=== PATIENT | male | born 1940 | race Caucasian/White ===

== ENCOUNTER 2016-08-16 08:39 | Outpatient (CLI) | payer MEDICARE, OTHER ==
--- NOTE | 2016-08-17 08:09 | MRI ---
MRI OF THE LUMBAR SPINE WITHOUT CONTRAST: Date: 08-16-16 Comparison: None. History: Evaluate compression fracture of the lumbar spine seen on prior radiographs. Technique: Multiplanar, multisequence MR imaging of the lumbar spine is obtained without contrast. FINDINGS: Assuming five lumbar type vertebral bodies, the conus medullaris terminates at the L1 level. There is no significant anterolisthesis or retrolisthesis seen. There is increased T2 signal involving the superior third of the L3 vertebral body, associated with a superior endplate fracture of the L3 vertebral body. The fracture line involves the anterior and posterior cortex, meeting criteria for a burst fracture. There is questionable minimal retropulsion of osseous fragments along the superior margin of the L3 vertebral body and at the level of the fra cture there is approximately 25% loss of vertebral body height centrally. No additional lumbar spin e fracture is noted. T12-L1: Intervertebral disc desiccation noted. There is mild disc space narrowing. There is no si gnificant central canal or neural foraminal stenosis. L1-2: There is mild bilateral facet hypertrophy. There is mild disc space narrowing. There is no significant central canal or neural foraminal stenosis. L2-3: Mild bilateral facet hypertrophy. Mild disc space narrowing and disc desiccation. No signif icant central canal or neural foraminal stenosis. L3-4: Mild bilateral facet hypertrophy. There is disc space narrowing, disc desiccation and mild d isc bulge as well as a left foraminal annular tear. There is no significant central canal or neural foraminal stenosis noted. L4-5: There is disc space narrowing, disc desiccation and mild disc bulge. There is bilateral face t hypertrophy with no significant central canal or neural foraminal stenosis. L5-S1: There is disc space narrowing and disc desiccation. There is bilateral facet hypertrophy wi th osteophyte encroachment on the bilateral neural foramina causing a mild left and moderate right n eural foraminal stenosis. No significant central canal stenosis. The imaged retroperitoneal structures demonstrate ectasia of the infrarenal abdominal aorta, not wel l characterized on this exam. There is a probable transitional vertebral body at the S1 level. The lowest full formed interverteb ral disc level is labelled at L5-S1 for the purposes of this dictation. IMPRESSION: 1. Burst fracture at L3 vertebral body with approximately 25% loss of vertebral body height. Quest ion minimal retropulsion of osseous fragments into the central canal with no associated central aubree l stenosis. 2. Multilevel degenerative change within the lumbar spine. 3. There is a probable transition S1 vertebral body. Please see the imaging on PACS for labelling of the vertebral body levels. POS: [facility]
== END 2016-08-16 08:40 | disposition home or self-care (01) ==
LOC: BURMRI 08:39
PROVIDERS: ATTEND Family Medicine
DX: S32.020A Wedge compression fracture of second lumbar vertebra, initial encounter for closed fracture (principal)
CPT/HCPCS: 72148

== ENCOUNTER 2017-03-03 10:57 | Outpatient (CLI) | payer MEDICARE, OTHER ==
[2017-03-03 12:32] LABS: #Basophils 0.1 thou/uL (0.0-0.2); #Eosinphils 0.2 thou/uL (0.0-0.7); #Lymphocytes 2.7 thou/uL (1.20-3.40); #Monocytes 0.7 thou/uL (0.11-0.59); #Neutrophils 6.6 thou/uL (1.40-6.50); %Lymphocytes 25.9 % (21.0-51.0); %Monocytes 7.2 % (0.0-10.0); %Neutrophils 63.9 % (42.0-75.0); Hemoglobin 14.4 g/dL (14.0-18.0); Mean Corpuscular HGB CONC 33.5 g/dL (32.0-36.0); Mean Corpuscular Hemoglobin 30.9 pg (27.0-31.0); Mean Corpuscular Volume 92.3 fl (80.0-94.0); Mean Platelet Volume 8.8 fL (7.4-10.4); Platelet Count 191 thou/uL (130-400); RBC Distribution Width 12.9 % (11.5-14.5); Red Blood Cell (RBC) Count 4.66 mill/uL (4.70-6.10); White Blood Cell (WBC) Count 10.3 thou/uL (4.8-10.8)
[2017-03-03 12:50] LABS: ALT (SGPT) 9 U/L (8-55); AST (SGOT) 18 U/L (5-34); Albumin 4.3 g/dL (3.4-4.8); Alkaline Phosphatase 104 U/L (40-150); Anion Gap 16 mmol/L (10-20); BUN (Urea Nitrogen) 11 mg/dL (8.4-25.7); Bilirubin, Total 0.7 mg/dL (0.2-1.2); Calc. Creatinine Clearance 0 mL/min (70-130); Calcium 9.8 mg/dL (7.8-10.44); Carbon Dioxide 27 mmol/L (23-31); Cardiac Risk 3.2 (Less than 4.5); Chloride 96 mmol/L (98-107); Cholesterol 139 mg/dl (< 200 Desired); Estimated GFR-MDRD 87; Globulin 3.5 g/dL (2.4-3.5); Glucose 90 mg/dL (83-110); HDL Cholesterol 43 mg/dL (>60 Neg Risk); LDL Cholesterol, Calculated 83 mg/dL; Potassium 4.9 mmol/L (3.5-5.1); Protein, Total 7.8 g/dL (5.8-8.1); Sodium 134 mmol/L (136-145); Triglycerides 64 mg/dL (Less than 150)
== END 2017-03-03 10:58 | disposition home or self-care (01) ==
LOC: HPCALD 10:57
PROVIDERS: ATTEND Family Medicine
DX: Z13.6 Encounter for screening for cardiovascular disorders (principal); Z00.00 Encounter for general adult medical examination without abnormal findings; I10 Essential (primary) hypertension
CPT/HCPCS: 36415; 80053; 80061; 85025

== ENCOUNTER 2018-03-20 13:58 | Outpatient (CLI) | payer MEDICARE, OTHER ==
--- NOTE | 2018-03-20 15:55 | RAD ---
CHEST TWO VIEWS: 03/20/2018 COMPARISON: 12/30/2016 FINDINGS: Multiple calcified pleural plaques are seen bilaterally. The size and number do not appear to have c hanged appreciably in the interval. I see no areas of marked pleural thickening that are different t soto before. On the prior study, there was a rounded density in the left base, seen very discretely. This is not as evident today as before. The lungs are hyperexpanded. No lobar consolidations or ef fusions are seen. The heart size is normal. There is no congestive change. Small pulmonary masses would be easily missed on this study due to the extensive pleural calcifications. IMPRESSION: 1. Extensive changes of asbestosis with no adverse change since the 2017 study. 2. The rounded left basilar density seen before is not clearly visible today. POS: HOME
== END 2018-03-20 13:59 | disposition home or self-care (01) ==
LOC: BURRAD 13:58
PROVIDERS: ATTEND Family Medicine
DX: J61 Pneumoconiosis due to asbestos and other mineral fibers (principal)
CPT/HCPCS: 71046

== ENCOUNTER → 2020-03-24 | Emergency (ER) | payer MEDICARE, OTHER ==
[~2020-03-24] MED LIST: Iopamidol 370 76% 100 ML VIAL ONE
--- NOTE | 2020-03-24 10:14 | RAD ---
2 view chest: [03/24/2020] Comparison:03/20/2018 HISTORY: Pain FINDINGS: No pneumothorax. Lungs are hyperinflated. Extensive curvilinear calcifications are noted bi laterally suggesting numerous calcified pleural plaques. When compared to the prior examination there has been interval development of increased linear density within the left base including the le ft costophrenic angle and the left cardiophrenic angle. On the lateral examination there is associated posterior increased density within the left base. IMPRESSION: Numerous calcified pleural plaques. Interstitial prominence and pulmonary hyperinflation suggests COPD. Interval development of nonspecific increased density in the left base suggesting infectious pneumonitis or aspiration. Short-term follow-up imaging of the chest following treatment to document resolution advised.
[2020-03-24 10:39] LABS: #Basophils 0.1 thou/uL (0.0-0.2); #Eosinphils 0.1 thou/uL (0.0-0.7); #Lymphocytes 1.8 thou/uL (1.20-3.40); #Monocytes 0.8 thou/uL (0.11-0.59); #Neutrophils 7.3 thou/uL (1.40-6.50); %Basophils 1.1 % (0.0-1.0); %Eosinophils 1.4 % (0.0-10.0); %Lymphocytes 17.5 % (21.0-51.0); %Neutrophils 72.1 % (42.0-75.0); Hemoglobin 11.6 g/dL (14.0-18.0); Mean Corpuscular HGB CONC 30.5 g/dL (32.0-36.0); Mean Corpuscular Hemoglobin 27.7 pg (27.0-31.0); Mean Platelet Volume 9.1 fL (7.4-10.4); Platelet Count 329 thou/uL (130-400); RBC Distribution Width 12.7 % (11.5-14.5); Red Blood Cell (RBC) Count 4.19 mill/uL (4.70-6.10); White Blood Cell (WBC) Count 10.1 thou/uL (4.8-10.8)
[2020-03-24 10:41] LABS: INR-International Normal Ratio 1.1
[2020-03-24 10:50] LABS: ALT (SGPT) 13 U/L (8-55); AST (SGOT) 16 U/L (5-34); Albumin 3.9 g/dL (3.4-4.8); Alkaline Phosphatase 111 U/L (40-110); Anion Gap 16 mmol/L (10-20); BUN (Urea Nitrogen) 9 mg/dL (8.4-25.7); Bilirubin, Total 0.4 mg/dL (0.2-1.2); Calc. Creatinine Clearance 0 mL/min (70-130); Calcium 9.4 mg/dL (7.8-10.44); Carbon Dioxide 27 mmol/L (23-31); Chloride 94 mmol/L (98-107); Estimated GFR-MDRD Greater than 90; Globulin 4.5 g/dL (2.4-3.5); Glucose 93 mg/dL (83-110); Potassium 4.5 mmol/L (3.5-5.1); Protein, Total 8.4 g/dL (5.8-8.1); Sodium 132 mmol/L (136-145)
--- NOTE | 2020-03-24 11:50 | CT ---
CT ANGIOGRAM OF THE CHEST: HISTORY: Hemoptysis. COMPARISON: None. TECHNIQUE: CT angiogram of the chest is performed in the axial plane. Three-dimensional reformatted images are s ubmitted for interpretation. FINDINGS: Mediastinum: No mass, lymphadenopathy or hematoma. HEART: Normal size. No significant pericardial fluid. Aorta: No aneurysm or dissection Upper solid abdominal viscera: No abnormality enhancement. Trachea and central bronchi: Patent. Pleural spaces: No pleural effusion. Multiple calcified nodules throughout the pleural margin. Correl ate for previous asbestos exposure. Hilum: Mildly enlarged right hilar lymph node measures 0.9 x 1.0 cm. Minimal left hilar fullness. Lung parenchyma: There are emphysematous changes in the lung apices and upper lobes. There are multip le spiculated nodules/masses involving the lung parenchyma. Right lung: Spiculated mass in the right lung apex with associated pleural thickening measures 1.9 x 1.8 cm. Spiculated mass in the upper lobe measures 2.1 x 1.1 cm. Largest spiculated mass in the right upper lobe demonstrates central necrosis and measures 3.2 x 3.0 cm. Additional smaller spiculat ed masses are noted in the right lower lobe. Left lung: Spiculated mass in the left upper lobe measures 1.4 x 1.2 cm. There is peribronchial thick ening with alveolar opacification involving the left lower lobe. Pneumothorax: None. Osseous structures: Diffuse bone demineralization. Multilevel degenerative changes. No lytic or blast ic lesions. No fracture. Pulmonary arteries:Adequate contrast opacification of the pulmonary arterial system to the level of t he segmental arteries. No filling defect to suggest thromboembolism. IMPRESSION: 1. No evidence of pulmonary artery embolism to the level of the segmental arteries. 2. Redemonstration multiple pleural-based calcifications. Correlate for asbestos exposure 3. Emphysematous changes are once again redemonstrated. 4. Multiple spiculated masses throughout the lung parenchyma, worrisome for malignancy/metastases unt il proven otherwise. 5. Bronchial thickening and alveolar opacification in the left lower lobe. Correlate for pneumonia. Transcribed Date/Time: 03/24/2020 12:01 PM
== END ==
LOC: BURERS 09:38
DX: C34.90 Malignant neoplasm of unspecified part of unspecified bronchus or lung (principal); J61 Pneumoconiosis due to asbestos and other mineral fibers; R04.2 Hemoptysis; E78.5 Hyperlipidemia, unspecified; I10 Essential (primary) hypertension; Z87.891 Personal history of nicotine dependence
CPT/HCPCS: 71046; 71275; 80053; 85025; 85610; 85730; 86850; 86900; 86901; Q9967

== ENCOUNTER 2020-09-18 14:44 | Emergency (ER) | payer MEDICARE, OTHER | END 2020-09-18 15:29 | disposition home or self-care (01) | LOC: BURERS 14:44 | DX: I10 Essential (primary) hypertension (principal); R23.4 Changes in skin texture; E78.5 Hyperlipidemia, unspecified; E78.00 Pure hypercholesterolemia, unspecified; J42 Unspecified chronic bronchitis; Z87.891 Personal history of nicotine dependence; Z79.82 Long term (current) use of aspirin; Z79.899 Other long term (current) drug therapy | CPT/HCPCS: 99283 ==

== ENCOUNTER 2022-10-06 10:39 | Outpatient (CLI) | payer MEDICARE, OTHER | END 2022-10-06 10:40 | disposition home or self-care (01) | LOC: BURRAD 10:39 | PROVIDERS: ATTEND Family Medicine | DX: R10.84 Generalized abdominal pain (principal); K59.00 Constipation, unspecified | CPT/HCPCS: 74019 ==

== ENCOUNTER 2023-01-20 17:29 | Outpatient (CLI) | payer MEDICARE, OTHER | END 2023-01-20 17:30 | disposition home or self-care (01) | LOC: BURRAD 17:29 | PROVIDERS: ATTEND Family Medicine | DX: R91.8 Other nonspecific abnormal finding of lung field (principal); J98.01 Acute bronchospasm; J90 Pleural effusion, not elsewhere classified; J98.4 Other disorders of lung | CPT/HCPCS: 71046 ==